=== PATIENT | female | born 1970 | race African-American/Black ===

== ENCOUNTER 2017-06-20 17:14 | Observation (INO) | payer BC ==
[~2017-06-20] VITALS: Ht 149.9 cm; Wt 60.7 kg
--- NOTE | ~2017-06-20 | EKG ---
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
--- NOTE | ~2017-06-20 | HC ---
[facility] [place] [address] CONSULTATION Name: LUCITA RESENDIZ Room #: 464-P [facility] M..#: [id number] Admission: 06/20/17 Attend Phys: Sanket Niño DO Discharge: Date of : 66 Report #: [id number] THIS REPORT FOR: //name// CC: Sanket Owenistin Shweta DATE OF SERVICE: 06/21/2017 HISTORY OF PRESENT ILLNESS: The patient was admitted because of an overdose. She has been hopeless and helpless. She makes it clear that at that time, she was wanting to end her life. She has still been ambivalent about having survived the attempts. She notes she had a very frustrating day trying to get information from her physician's office. She was unable to speak to the physician or even the assistant associate professor. She notes that paperwork is overdue for her disability through [employer]. She has been told that her "depression is treatment resistant." The most recent recommendation had been transcranial magnetic stimulation. PAST PSYCHIATRIC HISTORY: Long history of depression. She has had depression throughout her life and "they tell me a lot of stressful events that I had essentially suppressed." She has been under [facility] care for a few years, has had at least 1 course of ECT and a few medication trials. There has been a question of bipolar type 2 diagnosis on the basis of racing thoughts, flight of ideas, impulsivity and rapid shifts in mood. She has had 3 inpatient psychiatric stays. This is her third suicide attempt. CURRENT MEDICATIONS: Include potassium 20 mEq daily, lisinopril 10 at bedtime, nicotine patch 14 mg daily. ALLERGIES: HYDROCODONE, CODEINE, PROPOXYPHENE, MIRALAX. SOCIAL HISTORY: She has worked for the [employer] for last 4 years. 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 She is nicotine dependent. No active substance abuse issues. COGNITIVE EXAMINATION: She is alert and oriented to person, place, situation, and time. No significant deficits of short-term, long-term, intermediate memory as evidenced by her ability to recall elements of the past medical, psychiatric and social history. MENTAL STATUS EXAMINATION: -Polish female, depressed mood, restricted affect, decreased speech, sad, tearful. Recent suicidal behavior, still having suicidal ideation. No psychosis. Insight and judgment fair. DIAGNOSES: [facility] [address] [place] [address] CONSULTATION Name: LUCITA RESENDIZ Room #: 464-P [facility] Sha#: [id number] Admission: 06/20/17 Attend Phys: Sanket Niño DO Discharge: Date of : 66 Report #: [id number] AXIS I: Major depressive disorder, recurrent, severe, rule out bipolar type 2. AXIS II: Deferred. AXIS III: Nothing active. AXIS IV: Severe. AXIS V: 20. RECOMMENDATIONS: She may benefit from a combination of antidepressants and atypical antipsychotic. It appears she did fail the ECT from the standpoint of efficacy and was not tolerated that well either from the standpoint of pain in head and neck. I am unsure that there is significant benefit from transcranial magnetic stimulation in someone who has failed ECT. So perhaps next step is augmentation with atypical antipsychotic and after that look at lithium and may be a monoamine oxidase inhibitor. I spoke to [facility] and there hopefully be a bed that she could transfer into on [facility] tomorrow. By: [id number] Ronald Miner MD /nt
[~2017-06-20 17:14] MED LIST: ASPIR 8181 MG PO; B-50 COMPLEX1 EAC1 PO; CLONAZEPAM 1 MG1 M1 PO; COLACE100 MG PO; CYMBALTA60 MG PO; FLUOXETINE HCL20 M1 PO; K-SOL20 MEQ/15 PO; KLOR-CON 1010 MEQ PO; LISINOPRIL10 MG PO; LISINOPRIL20 MG PO; LORAZEPAM 1 MG T1 M1 PO; MULTIVITAMINS PO; NORCO 5-325 TA1 EACH PO; OMEPRAZOLE 20 M20 MG PO; OMEPRAZOLE40 MG PO; SEROQUEL 12.512.5 MG PO
[2017-06-20 17:15] VITALS: BP 163/83
[2017-06-20] MEDS ORDERED: CYMBALTA60 MG PO (17:33)
[2017-06-20 17:37] LABS: URINE BILIRUBIN NEGATIVE (Negative); URINE BLOOD 1+ (Negative); URINE COLOR YELLOW; URINE GLUCOSE-RANDOM* NEGATIVE (Negative); URINE KETONES NEGATIVE (Negative); URINE LEUKOCYTES-REFLEX NEGATIVE (Negative); URINE PROTEIN (DIPSTICK) NEGATIVE (Negative); URINE SPECIFIC GRAVITY <= 1.005 (1.003-1.035); URINE UROBILINOGEN 0.2 E.U./dl (0.2-1.0)
[2017-06-20 17:44] LABS: ABSOLUTE NEUTROPHILS 2.1 thou/uL (1.4-8.2); BASOPHILS 0.9 % (0.0-2.0); EOSINOPHILS 3.1 % (0.0-3.0); HEMATOCRIT 38.3 % (37.0-47.0); HEMOGLOBIN 13.1 gm/dL (12.0-15.0); LYMPHOCYTES 44.5 % (24.0-44.0); MCH 32.5 pg (26.0-34.0); MCHC 34.1 g/dL (28.0-37.0); MCV 95.2 fL (80.0-100.0); MONOCYTES 6.7 % (1.0-8.0); PLATELET COUNT 176 thou/uL (150-400); POLYS 44.8 % (36.0-66.0); RBC 4.02 mil/uL (4.20-5.00); RDW 12.2 % (10.5-14.5); WBC 4.7 thou/uL (4.0-11.0)
[2017-06-20 17:45] LABS: CASTS None Seen /LPF (None Seen); CRYSTALS None Seen /LPF (None Seen); SQUAMOUS 0-3 Few /LPF (0-3)
[2017-06-20 17:46] LABS: MANUAL DIFF NO
[2017-06-20 17:46] LABS: AMP/METHAMP Negative (Negative); BARBITURATES Negative (Negative); BENZODIAZEPINES Negative (Negative); COCAINE Negative (Negative); METHADONE Negative (Negative); OPIATES Negative (Negative); PCP Negative (Negative); THC Negative (Negative); URINE RBC 0-2 Rare /HPF (0-2); URINE WBC-REFLEX None Seen /HPF (0-5)
[2017-06-20 17:59] LABS: ALKALINE PHOSPHATASE 58 U/L (46-116); ANION GAP 5 mmol/L (7-16); BUN 10 mg/dL (7-18); CHLORIDE 105 mmol/L (98-107); CO2 33 mmol/L (21-32); GLUCOSE 95 mg/dL (74-106); MAGNESIUM 2.2 mg/dL (1.8-2.4); SALICYLATE < 2.8 mg/dL (2.8-20.0); SGOT 15 U/L (15-37); SGPT 25 U/L (30-65); SODIUM 143 mmol/L (136-145); TOTAL BILIRUBIN 0.3 mg/dL (<0.1-1.0); TOTAL PROTEIN 7.3 g/dL (6.4-8.2); TROPONIN-I < 0.04 ng/mL (<0.04-0.07)
[2017-06-20 18:02] LABS: POTASSIUM 2.7 mmol/L (3.5-5.1)
[2017-06-20 18:11] LABS: ACETAMINOPHEN < 2 ug/mL (10-30)
[2017-06-20 19:14] VITALS: BP 149/81
[2017-06-20 20:25] VITALS: BP 131/68
[2017-06-20 21:51] VITALS: BP 143/68
[2017-06-21 00:47] VITALS: BP 123/71
[2017-06-21 05:41] LABS: ABSOLUTE NEUTROPHILS 1.8 thou/uL (1.4-8.2); BASOPHILS 0.6 % (0.0-2.0); EOSINOPHILS 2.6 % (0.0-3.0); HEMATOCRIT 32.4 % (37.0-47.0); HEMOGLOBIN 11.2 gm/dL (12.0-15.0); LYMPHOCYTES 41.2 % (24.0-44.0); MCH 32.9 pg (26.0-34.0); MCHC 34.7 g/dL (28.0-37.0); MCV 94.9 fL (80.0-100.0); MONOCYTES 7.3 % (1.0-8.0); PLATELET COUNT 160 thou/uL (150-400); POLYS 48.3 % (36.0-66.0); RBC 3.41 mil/uL (4.20-5.00); RDW 12.3 % (10.5-14.5); WBC 3.8 thou/uL (4.0-11.0)
[2017-06-21 05:46] LABS: MANUAL DIFF NO
[2017-06-21 05:59] LABS: CALCIUM 8.2 mg/dL (8.5-10.1); CREATININE 1.2 mg/dL (0.6-1.0); POTASSIUM 3.2 mmol/L (3.5-5.1)
[2017-06-21 07:45] VITALS: BP 150/86
[2017-06-21 11:30] VITALS: BP 146/85
[2017-06-21 15:57] VITALS: BP 149/96
[2017-06-21 19:45] VITALS: BP 147/90
[2017-06-22 04:24] VITALS: BP 131/81
[2017-06-22 07:29] VITALS: BP 147/79
== END 2017-06-22 09:24 ==
LOC: ER 17:14 → 4W 18:48 → EROBS 18:48 → 4W 19:17
PROVIDERS: Emergency Medicine; Family Medicine
DX: T43.212A Poisoning by selective serotonin and norepinephrine reuptake inhibitors, intentional self-harm, initial encounter (principal); F32.9 Major depressive disorder, single episode, unspecified; F41.9 Anxiety disorder, unspecified; E87.6 Hypokalemia; I47.1 Supraventricular tachycardia; I21.4 Non-ST elevation (NSTEMI) myocardial infarction; I10 Essential (primary) hypertension; F17.200 Nicotine dependence, unspecified, uncomplicated; E11.9 Type 2 diabetes mellitus without complications; Y92.89 Other specified places as the place of occurrence of the external cause

== ENCOUNTER 2017-07-13 20:41 | Emergency (ER) | payer BC ==
[~2017-07-13] VITALS: Ht 149.9 cm; Wt 59.0 kg
[2017-07-13] MEDS ORDERED: IBUPROFEN 800800 M1 PO (21:23)
== END 2017-07-13 22:31 | disposition home or self-care (01) ==
LOC: ER 20:41
DX: S52.592A Other fractures of lower end of left radius, initial encounter for closed fracture (principal); I10 Essential (primary) hypertension; F41.9 Anxiety disorder, unspecified; F17.210 Nicotine dependence, cigarettes, uncomplicated; Z90.710 Acquired absence of both cervix and uterus; Z88.5 Allergy status to narcotic agent; Z88.8 Allergy status to other drugs, medicaments and biological substances; W01.0XXA Fall on same level from slipping, tripping and stumbling without subsequent striking against object, initial encounter; Y93.89 Activity, other specified; Y92.89 Other specified places as the place of occurrence of the external cause; Y99.8 Other external cause status